=== PATIENT | female | born 1940 | race Caucasian/White ===

== ENCOUNTER 2020-01-12 14:08 | Emergency (ER) | payer OTHER ==
[~2020-01-12] VITALS: Ht 167.6 cm; Wt 90.7 kg
--- NOTE | ~2020-01-12 | EMS ---
[address] [address] EMS Patient Care Report Name: JULIET ADEN Room #: REG JENNIFER Tate#: [id number] Admission: 01/12/20 Attend Phys: Discharge: Date of : 42 Report #: [id number] THIS REPORT FOR: //name// Report Transmitted: 01/12/2020 16:40 EMS Care Summary [facility] MED-ACT Incident [id number] @ 01/12/2020 13:17 Incident Location [address] [place] [address] Patient JULIET ADEN Female, 79 Years 1940 Patient Address [id number] [place] [id number] Patient History Diabetes,Hypertension (HTN),Chronic Kidney Disease,Ventilator dependent, Chief Complaint " We found her on the ground in cardiac arrset." Disposition Transported No Lights/[place] Dispatch Reason Cardiac Arrest/ Transported To [facility] Narrative EMS made contact with female pt laying supine on the ground with a vent connected to her trach. S47 reported that they had arrived to find an alert stable pt laying supine on the ground in no apparent distress and tracking responders. Staff reported that the pt was found left lateral recumbent on the floor at the foot of her bed with her vent detached from her trach, seemingly in cardiac arrest. Staff reported that they did 5-6 " rounds of CPR and then the pt regained consciousness and they stopped. Staff reported that the pt was [address] [place] [address] EMS Patient Care Report Name: JULIET ADEN Room #: REG [place]#: [id number] Admission: 01/12/20 Attend Phys: Discharge: Date of : 42 Report #: [id number] 100% vent dependent and had been in the facility for a year. EMS advised that the pt appeared to be breathing on her own due to obvious unassisted chest rise, wave form capnography and acceptable SPO2. Facility reported that she was always on the vent so EMS asked if it was a demand vent and staff denied this. Staff reported that the pt had been unable to wean off the vent which was why she was at this facility. Staff reported that the t had been at this facility for a year and was mostly non weight bearing because of weakness Pt maintained her breathing well when not being ventilated by EMS and EMS found it difficult to ventilate the pt because she was breathing at a different rate than EMS was attempting to ventilate. Staff reported that " they" wanted the pt sent out for a head CT. M1141 and the pt's Physician arrived the same time and he began to ask situational questions about what had happened. The physician asked if the pt was stable, EMS advised the pt was, and then asked if the family had requested transport or if the pt was staying. Staff then reported that the family had not been contacted yet. EMS asked of the pt was to be transported to hospital or not. Staff then reported that the pt could go for a head CT and then come right back. EMS then placed the pt on a scoop stretcher then on the cot, then the scoop removed and the pt secured. When pt was being moved to the [facility] she tried to remove the BVM and had to be coached to not remove this. Pt was able to to answer question by shaking her head in a yes and no fashion. Pt reported chest pain from the chest compression and reported that she had full recollection of events. Pt reported that she could remember the entirety of the chest compressions but was too weak to stop the staff. Pt reported that she had fallen when she unhooked her vent to try and stand up but was too weak. Pt confirmed that she was infect breathing and was intermittently able to sustain her own breathing Pt denied hitting her head and reported that she more slid to the ground. Pt denied neck or back pain, SOA or extremity pain. Pt voiced no further complaints. Initial Vitals @13:53P: 96,R: 32,BP: 162/74,Pain: 6/10,EtCO2: 54,SpO2: 99, @13:35P: 85,R: 30,EtCO2: 50,SpO2: 100, @13:53P: 98,R: 31,EtCO2: 52,SpO2: 100, @14:04P: 85,R: 35,EtCO2: 54,SpO2: 93, @13:59P: 86,R: 40,BP: 186/76,EtCO2: 63,SpO2: 94, @13:54P: 96,R: 29,EtCO2: 59,SpO2: 96, @PTAP: 85,R: 30,BP: 217/79,GCS: 11,SpO2: 100,Revised Trauma: 10, Assessments @13:32MENTAL:Other,SKIN:HEENT:Neck/Airway: Other,Head/Face: No Abnormalities,LUNG SOUNDS:General: Other,ABDOMEN:General: Other,PELVIS//GI:Incontinence,EXTREMITIES:Left Arm: No Abnormalities,Right Arm: No Abnormalities,Left Leg: No Abnormalities,Right Leg: No Abnormalities,PULSE:NEURO:No Abnormalities, [facility] [address] [place] [address] EMS Patient Care Report Name: JULIET ADEN Room #: REG ER [place]#: [id number] Admission: 01/12/20 Attend Phys: Discharge: Date of : 42 Report #: [id number] Impression Other tracheostomy complication Procedures @PTAResponse: [email or web address] ECGResponse: [email or web address] CommentsResponse: Unchanged Timeline TRACK WATCHMAN,Response: WorseSucceeded, TRACK WATCHMAN,12-Lead ECG,Response: UnchangedSucceeded, TRACK WATCHMAN,General Comments,Response: Unchanged TRACK WATCHMAN,BP: 217/79 M,PULSE: 85,RR: 30 R,SPO2: 100 Ox,ETCO2: ,BG: ,PAIN: ,GCS: 11, 13:16,Call Received 13:16,Psap Call 13:17,Dispatched 13:17,En Route 13:25,On Scene 13:30,At Patient 13:35,BP: / M,PULSE: 85,RR: 30 R,SPO2: 100 Ox,ETCO2: 50 ,BG: ,PAIN: ,GCS: , 13:50,Depart Scene 13:53,BP: 162/74 M,PULSE: 96,RR: 32 R,SPO2: 99 Ox,ETCO2: 54 ,BG: ,PAIN: 6,GCS: , 13:53,BP: / M,PULSE: 98,RR: 31 R,SPO2: 100 Ox,ETCO2: 52 ,BG: ,PAIN: ,GCS: , 13:54,BP: / M,PULSE: 96,RR: 29 R,SPO2: 96 Ox,ETCO2: 59 ,BG: ,PAIN: ,GCS: , 13:59,BP: 186/76 M,PULSE: 86,RR: 40 R,SPO2: 94 Ox,ETCO2: 63 ,BG: ,PAIN: ,GCS: , 14:01,At Destination 14:04,BP: / M,PULSE: 85,RR: 35 R,SPO2: 93 Ox,ETCO2: 54 ,BG: ,PAIN: ,GCS: , 14:24,Call Closed Disclaimer v1.1 Copyright 2020 [employer] This EMS Care Summary contains data elements from the applicable legal record (which may be displayed differently). It is designed to provide pertinent information for the following purposes: continuity of care, clinical quality, and state data reporting. The complete legal record is available to ED staff and administrators of the receiving hospital in [employer]'s Patient Tracker. All data is provided "as is."
--- NOTE | ~2020-01-12 | EMS ---
[facility] [address] [place] [address] EMS Patient Care Report Name: JULIET ADEN Room #: DEP JENNIFER Tate#: [id number] Admission: 01/12/20 Attend Phys: Discharge: 01/12/20 Date of : 42 Report #: [id number] THIS REPORT FOR: //name// Report Transmitted: 01/16/2020 10:26 EMS Care Summary [facility] MED-ACT Incident [id number] @ 01/12/2020 13:17 Incident Location [address] [address] Patient JULIET ADEN Female, 79 Years 1940 Patient Address [address] [place] [address] Patient History Diabetes,Hypertension (HTN),Chronic Kidney Disease,Ventilator dependent, Chief Complaint " We found her on the ground in cardiac arrset." Disposition Transported No Lights/[place] Dispatch Reason Cardiac Arrest/ Transported To [facility] Narrative EMS made contact with female pt laying supine on the ground with a vent connected to her trach. S47 reported that they had arrived to find an alert stable pt laying supine on the ground in no apparent distress and tracking responders. Staff reported that the pt was found left lateral recumbent on the floor at the foot of her bed with her vent detached from her trach, seemingly in cardiac arrest. Staff reported that they did 5-6 " rounds of CPR and then the pt regained consciousness and they stopped. Staff reported that the pt was [facility] [address] [place] [address] EMS Patient Care Report Name: JULIET ADEN Room #: DEP [place]#: [id number] Admission: 01/12/20 Attend Phys: Discharge: 01/12/20 Date of : 42 Report #: [id number] 100% vent dependent and had been in the facility for a year. EMS advised that the pt appeared to be breathing on her own due to obvious unassisted chest rise, wave form capnography and acceptable SPO2. Facility reported that she was always on the vent so EMS asked if it was a demand vent and staff denied this. Staff reported that the pt had been unable to wean off the vent which was why she was at this facility. Staff reported that the t had been at this facility for a year and was mostly non weight bearing because of weakness Pt maintained her breathing well when not being ventilated by EMS and EMS found it difficult to ventilate the pt because she was breathing at a different rate than EMS was attempting to ventilate. Staff reported that " they" wanted the pt sent out for a head CT. M1141 and the pt's Physician arrived the same time and he began to ask situational questions about what had happened. The physician asked if the pt was stable, EMS advised the pt was, and then asked if the family had requested transport or if the pt was staying. Staff then reported that the family had not been contacted yet. EMS asked of the pt was to be transported to hospital or not. Staff then reported that the pt could go for a head CT and then come right back. EMS then placed the pt on a scoop stretcher then on the cot, then the scoop removed and the pt secured. [facility] she tried to remove the BVM and had to be coached to not remove this. Pt was able to to answer question by shaking her head in a yes and no fashion. Pt reported chest pain from the chest compression and reported that she had full recollection of events. Pt reported that she could remember the entirety of the chest compressions but was too weak to stop the staff. Pt reported that she had fallen when she unhooked her vent to try and stand up but was too weak. Pt confirmed that she was infect breathing and was intermittently able to sustain her own breathing Pt denied hitting her head and reported that she more slid to the ground. Pt denied neck or back pain, SOA or extremity pain. Pt voiced no further complaints. Initial Vitals @13:53P: 96,R: 32,BP: 162/74,Pain: 6/10,EtCO2: 54,SpO2: 99, @13:35P: 85,R: 30,EtCO2: 50,SpO2: 100, @13:53P: 98,R: 31,EtCO2: 52,SpO2: 100, @14:04P: 85,R: 35,EtCO2: 54,SpO2: 93, @13:59P: 86,R: 40,BP: 186/76,EtCO2: 63,SpO2: 94, @13:54P: 96,R: 29,EtCO2: 59,SpO2: 96, @PTAP: 85,R: 30,BP: 217/79,GCS: 11,SpO2: 100,Revised Trauma: 10, Assessments @13:32MENTAL:Other,SKIN:HEENT:Neck/Airway: Other,Head/Face: No Abnormalities,LUNG SOUNDS:General: Other,ABDOMEN:General: Other,PELVIS//GI:Incontinence,EXTREMITIES:Left Arm: No Abnormalities,Right Arm: No Abnormalities,Left Leg: No Abnormalities,Right Leg: No Abnormalities,PULSE:NEURO:No Abnormalities, [facility] [address] [place] [address] EMS Patient Care Report Name: JULIET ADEN Room #: [facility]#: [id number] Admission: 01/12/20 Attend Phys: Discharge: 01/12/20 Date of : 42 Report #: [id number] Impression Other tracheostomy complication Procedures @PTAResponse: [email or web address] ECGResponse: [email or web address] CommentsResponse: Unchanged Timeline OCEAN EXPORT ACCOUNT MANAGER,Response: WorseSucceeded, OCEAN EXPORT ACCOUNT MANAGER,12-Lead ECG,Response: UnchangedSucceeded, OCEAN EXPORT ACCOUNT MANAGER,General Comments,Response: Unchanged OCEAN EXPORT ACCOUNT MANAGER,BP: 217/79 M,PULSE: 85,RR: 30 R,SPO2: 100 Ox,ETCO2: ,BG: ,PAIN: ,GCS: 11, 13:16,Call Received 13:16,Psap Call 13:17,Dispatched 13:17,En Route 13:25,On Scene 13:30,At Patient 13:35,BP: / M,PULSE: 85,RR: 30 R,SPO2: 100 Ox,ETCO2: 50 ,BG: ,PAIN: ,GCS: , 13:50,Depart Scene 13:53,BP: 162/74 M,PULSE: 96,RR: 32 R,SPO2: 99 Ox,ETCO2: 54 ,BG: ,PAIN: 6,GCS: , 13:53,BP: / M,PULSE: 98,RR: 31 R,SPO2: 100 Ox,ETCO2: 52 ,BG: ,PAIN: ,GCS: , 13:54,BP: / M,PULSE: 96,RR: 29 R,SPO2: 96 Ox,ETCO2: 59 ,BG: ,PAIN: ,GCS: , 13:59,BP: 186/76 M,PULSE: 86,RR: 40 R,SPO2: 94 Ox,ETCO2: 63 ,BG: ,PAIN: ,GCS: , 14:01,At Destination 14:04,BP: / M,PULSE: 85,RR: 35 R,SPO2: 93 Ox,ETCO2: 54 ,BG: ,PAIN: ,GCS: , 14:24,Call Closed Disclaimer v1.1 Copyright 2020 [employer] This EMS Care Summary contains data elements from the applicable legal record (which may be displayed differently). It is designed to provide pertinent information for the following purposes: continuity of care, clinical quality, and state data reporting. The complete legal record is available to ED staff and administrators of the receiving hospital in [employer]'s Patient Tracker. All data is provided "as is."
[2020-01-12 14:29] LABS: MONOCYTES 6.7 % (1.0-8.0)
[2020-01-12 14:31] LABS: ABSOLUTE NEUTROPHILS 8.5 thou/uL (1.4-8.2); BASOPHILS 0.5 % (0.0-2.0); EOSINOPHILS 3.2 % (0.0-3.0); LYMPHOCYTES 20.2 % (24.0-44.0); MCH 22.9 pg (26.0-34.0); MCHC 30.7 g/dL (28.0-37.0); MCV 74.6 fL (80.0-100.0); PLATELET COUNT 303 thou/uL (150-400); POLYS 69.4 % (36.0-66.0); RBC 2.64 mil/uL (4.20-5.00); WBC 12.3 thou/uL (4.0-11.0)
[2020-01-12 14:37] LABS: HEMATOCRIT 19.7 % (37.0-47.0); HEMOGLOBIN 6.1 gm/dL (12.0-15.0)
[2020-01-12 14:51] LABS: BE(vivo) 6.5 mmol/L (-2 to +3); HCO3 32.1 mmol/L (22.0-26.0); PCO2 54.4 mmHg (35.0-45.0); PO2 119.3 mmHg (80.0-100.0); pH 7.389 (7.360-7.450); sO2 98.2 % (92.0-98.0)
[2020-01-12 15:05] LABS: ANION GAP 5 mmol/L (7-16); BUN 23 mg/dL (7-18); CALCIUM 8.9 mg/dL (8.5-10.1); CHLORIDE 98 mmol/L (98-107); CO2 33 mmol/L (21-32); CREATININE 1.1 mg/dL (0.6-1.0); GLUCOSE 182 mg/dL (74-106); POTASSIUM 4.7 mmol/L (3.5-5.1); SODIUM 136 mmol/L (136-145)
[2020-01-12 15:15] LABS: ALBUMIN 2.8 g/dL (3.4-5.0); DIRECT BILIRUBIN < 0.1 mg/dL (<0.1-0.2); SGOT 31 U/L (15-37); SGPT 23 U/L (30-65); TOTAL BILIRUBIN 0.3 mg/dL (0.2-1.0); TOTAL PROTEIN 7.5 g/dL (6.4-8.2); TROPONIN-I <0.06 ng/mL (<0.06)
[2020-01-12 19:35] VITALS: BP 165/82
--- NOTE | 2020-01-13 08:28 | EKG ---
[facility] [place] [address] [address] [place] [address] ELECTROCARDIOGRAM REPORT Name: JULIET ADEN Room #: [facility]#: [id number] Admission: 01/12/20 Attend Phys: Discharge: 01/12/20 Date of : 42 Report #: [id number] THIS REPORT FOR: cc: Sb Del Cid MD, Christopher B. MD Lundgren,Manjit Yao MD [facility] ~ THIS REPORT FOR: //name// [facility] ED Test Date: 2020-01-12 Test Time: 14:14:35 Pat Name: JULIET ADEN Department: Room: Gender: F Ultrasonic Cleaner: [facility] : 1940 Requested By: Richard Goodrich Order Number: [id number] MD: Manjit Wetzel Measurements Intervals Gilbert Rate: 76 P: 0 CT: 218 QRS: 127 QRSD: 113 T: 10 QT: 410 QTc: 462 Interpretive Statements Sinus rhythm Atrial premature complex Prolonged CT interval Left posterior fascicular block Low voltage, extremity leads Abnormal R-wave progression, late transition No previous ECG available for comparison Electronically Signed On 01-13-2020 8:28:29 CDT by Manjit Wetzel [email or web address] <ELECTRONICALLY SIGNED> By: Manjit Wetzel MD, [facility] 01/13/20 0828 1414 1414 Manjit Wetzel MD, [facility] /EPI
== END 2020-01-12 19:56 ==
LOC: ER 14:08
PROVIDERS: Emergency Medicine
DX: J98.9 Respiratory disorder, unspecified (principal); I46.8 Cardiac arrest due to other underlying condition; E11.9 Type 2 diabetes mellitus without complications; I48.91 Unspecified atrial fibrillation; Z86.73 Personal history of transient ischemic attack (TIA), and cerebral infarction without residual deficits; I50.9 Heart failure, unspecified; E66.9 Obesity, unspecified; Z88.6 Allergy status to analgesic agent; Z88.8 Allergy status to other drugs, medicaments and biological substances; Z68.32 Body mass index [BMI] 32.0-32.9, adult

== ENCOUNTER 2020-07-13 18:02 | Inpatient (IN) | payer OTHER, MEDICAID ==
[~2020-07-13] VITALS: Ht 165.1 cm; Wt 75.3 kg
[2020-07-13] VITALS (7 sets, daily range): BP systolic 105–163; BP diastolic 22–42
--- NOTE | ~2020-07-13 | HC ---
[facility] [place] [address] CONSULTATION Name: JULIET ADEN Room #: 247-P ADM IN M.R.#: [id number] Admission: 07/13/20 Attend Phys: Adam Hernandez MD Discharge: Date of : 42 Report #: [id number] THIS REPORT FOR: cc: Sb Del Cid MD, Christopher B. MD Nichols, Jon C. MD ~ DATE OF SERVICE: 07/14/2020 GASTROINTESTINAL CONSULTATION REASON FOR CONSULTATION: Severe anemia. BACKGROUND: The patient is a 80-year-old white female with multiple medical problems requiring chronic ventilatory support, transferred from [facility] facility with increased shortness of breath, elevated temperature up to 101.2 degrees, decreased tolerance of oral intake and decreased mentation. The patient's eyes are open and she is responsive to simple questions, but is unable to provide any detail of events. She has been progressively weaker over the past week with decreased oral intake with alteration in her normal mental status. History is also reviewed with her nurse in the ICU and there has not been report of any active GI bleeding, although she was found to have severe anemia on her admission. LABORATORY DATA: Initial laboratory studies on 07/13/2020 included white blood cell count 20.1; hemoglobin 4.2; MCV 70.9; platelet count 443,000. BNP on 07/13/2020 was markedly elevated at 3627. Procalcitonin 0.11, not elevated. Further iron studies on 07/14/2020 included serum iron 9, TIBC 170 with 5% iron saturation and ferritin 79. PAST MEDICAL HISTORY: Unable to be obtained from the patient, but she has history of acute hypoxic respiratory failure secondary to cardiac arrest, CVA, congestive heart failure, atrial fibrillation, diabetes. CURRENT MEDICATIONS: Losartan 25 mg per day, atorvastatin 10 mg at bedtime, vancomycin 1 gram q. 12 hours, Vimpat 200 mg p.o. b.i.d., diltiazem 30 mg q. 6 hours, famotidine 20 mg IV each day, aspirin 81 mg per day, furosemide 40 mg IV b.i.d., nystatin topical, Levaquin 750 mg every 48 hours, Humalog insulin scale, Zosyn 3.375 grams IV q. 8 hours, methylprednisolone 40 mg IV q. 8 hours, albuterol inhaler every 4 hours, norepinephrine titration. ALLERGIES: ACETAMINOPHEN, PROPOXYPHENE. SOCIAL HISTORY, FAMILY HISTORY, REVIEW OF SYSTEM: Unable to be obtained from the patient. [address] [address] CONSULTATION Name: JULIET ADEN Room #: [address] [place] [address] [place] [facility].#: [id number] Admission: 07/13/20 Attend Phys: Adam Hernandez MD Discharge: Date of : 42 Report #: [id number] PHYSICAL EXAMINATION: GENERAL: She appears awake and in no acute distress at rest, but elderly and mildly tremulous. VITAL SIGNS: O2 saturation 100% on ventilator. Blood pressure 168/57, pulse 80. HEENT: No obvious scleral icterus. HEART: Rate and rhythm regular at this time. LUNGS: Auscultation of anterior lung cuba reveals occasional rhonchi, but good air movement. ABDOMEN: Soft, nondistended, with active bowel sounds. PEG tube is in place with no obvious blood within the tube. EXTREMITIES: She does not have any significant peripheral edema. RADIOLOGICAL STUDIES: Chest x-ray revealed placement of right subclavian, stable bilateral pulmonary opacities, right greater than left, most consistent with pneumonia. A CT head revealed no acute intracranial process. IMPRESSION: 1. Severe anemia with decrease in hemoglobin to 4.3. Note that hemoglobin was 6.1 in 12/2019. She has not had any overt evidence of gastrointestinal bleeding reported. 2. Acute/chronic respiratory failure with maintenance on the ventilator per tracheostomy. 3. Congestive heart failure. 4. Status post tracheostomy and PEG tube placement following cardiac arrest. 5. Diabetes mellitus. 6. History of atrial fibrillation. RECOMMENDATIONS: 1. Monitor H and H, following transfusion of 2 units of packed red blood cells. 2. IV pantoprazole 40 mg each day. 3. Check stool for occult blood. 4. Monitor clinical condition following treatment for congestive heart failure and pneumonia. By: [id number] Alfonso Luna MD /nt
[2020-07-13 18:24] LABS: BE(vivo) 5.8 mmol/L (-2 to +3); HCO3 30.6 mmol/L (22.0-26.0); PCO2 47.5 mmHg (35.0-45.0); pH 7.427 (7.360-7.450); sO2 92.4 % (92.0-98.0)
[2020-07-13 18:47] LABS: MCHC 29.6 g/dL (28.0-37.0); MCV 70.9 fL (80.0-100.0); PLATELET COUNT 443 thou/uL (150-400); RDW 22.8 % (10.5-14.5); WBC 20.1 thou/uL (4.0-11.0)
[2020-07-13 18:52] LABS: HEMATOCRIT 14.2 % (37.0-47.0); HEMOGLOBIN 4.2 gm/dL (12.0-15.0)
--- NOTE | 2020-07-13 19:04 | NUR ---
PROVIDER DISCUSSED RESULTS OF LABS WITH THIS NURSE V/O TO DECREASE FLUIDS FROM 1000ML HOUR TO 80/HR, ORDER COMPLETED.
[2020-07-13 19:06] LABS: ABSOLUTE NEUTROPHILS 18.7 thou/uL (1.4-8.2); ANISOCYTOSIS 1+
[2020-07-13 19:07] LABS: HYPOCHROMASIA 1+; MICROCYTES 1+
[2020-07-13 19:08] LABS: ANION GAP 0 mmol/L (7-16); BUN 65 mg/dL (7-18); CALCIUM 8.5 mg/dL (8.5-10.1); CHLORIDE 99 mmol/L (98-107); CO2 34 mmol/L (21-32); CREATININE 1.2 mg/dL (0.6-1.0); GLUCOSE 181 mg/dL (74-106); SODIUM 133 mmol/L (136-145)
[2020-07-13 19:19] LABS: ALBUMIN 1.8 g/dL (3.4-5.0); AMYLASE 28 U/L (25-115); DIRECT BILIRUBIN 0.1 mg/dL (<0.1-0.2); LIPASE 47 U/L (73-393); MAGNESIUM 2.4 mg/dL (1.8-2.4); SGOT 38 U/L (15-37); SGPT 39 U/L (30-65); TOTAL BILIRUBIN 0.2 mg/dL (0.2-1.0); TOTAL PROTEIN 7.6 g/dL (6.4-8.2); TROPONIN-I <0.06 ng/mL (<0.06)
[2020-07-13 19:43] LABS: MCH 21.1 pg (26.0-34.0); MCHC 29.5 g/dL (28.0-37.0); MCV 71.3 fL (80.0-100.0); PLATELET COUNT 420 thou/uL (150-400); RBC 2.03 mil/uL (4.20-5.00); WBC 21.8 thou/uL (4.0-11.0)
[2020-07-13 19:45] LABS: HEMOGLOBIN 4.3 gm/dL (12.0-15.0)
[2020-07-13 19:46] LABS: HEMATOCRIT 14.5 % (37.0-47.0); URINE BILIRUBIN NEGATIVE (Negative); URINE BLOOD NEGATIVE (Negative); URINE CLARITY SL CLOUDY; URINE COLOR YELLOW; URINE GLUCOSE-RANDOM* NEGATIVE (Negative); URINE KETONES NEGATIVE (Negative); URINE LEUKOCYTES-REFLEX NEGATIVE (Negative); URINE NITRITE-REFLEX NEGATIVE (Negative); URINE PROTEIN (DIPSTICK) TRACE (Negative)
--- NOTE | 2020-07-13 20:00 | NUR ---
IV team is here at bedside to put in CL or PICC
[2020-07-13 20:27] LABS: ANISOCYTOSIS 1+; MICROCYTES 1+
[2020-07-13 20:28] LABS: ABSOLUTE NEUTROPHILS 19.8 thou/uL (1.4-8.2); HYPOCHROMASIA 2+
--- NOTE | 2020-07-13 21:02 | NUR ---
VAT CONSULTED FOR PICC LINE PLACEMENT. RIGHT UPPER CEPHALIC TL PICC PLACED, PER POLICY. TIP LOCATION VERIFIED WITH 3CG, BUT UNABLE TO PRINT, SO WILL HAVE CXR FOR RECORD.
--- NOTE | 2020-07-13 21:35 | NUR ---
pt back from CT
[2020-07-13] MEDS ORDERED: HUMALOG100 UNIT/1 SUBQ (23:41)
[2020-07-13] MEDS ORDERED: LANTUS SUBQ (23:42)
[2020-07-13] MEDS ORDERED: FLORANEX TABLE1 EACH PER TUBE (23:43)
[2020-07-13] MEDS ORDERED: CYMBALTA60 MG PER TUBE (23:44)
[2020-07-13] MEDS ORDERED: FUROSEMIDE 40 M40 MG PER TUBE (23:44)
[2020-07-13] MEDS ORDERED: COZAAR 25 MG TA25 M2 PER TUBE (23:45)
[2020-07-13] MEDS ORDERED: ALPHAGAN P5 ML OPHTHALMIC (23:49)
[2020-07-13] MEDS ORDERED: DORZOLAMIDE 2%10 ML OPHTHALMIC (23:50)
[2020-07-13] MEDS ORDERED: HYTRIN 2MG CAPSU2 M1 PER TUBE (23:51)
[2020-07-13] MEDS ORDERED: BUSPIRONE HCL5 MG PER TUBE (23:52)
[2020-07-13] MEDS ORDERED: VIMPAT200 MG PERIART (23:52)
[2020-07-13] MEDS ORDERED: FEROSUL325 M1 PER TUBE (23:53)
[2020-07-13] MEDS ORDERED: DILTIAZEM ER60 M1 PER TUBE (23:54)
[2020-07-13] MEDS ORDERED: HYDRALAZINE 5050 MG PER TUBE (23:55)
[2020-07-13] MEDS ORDERED: LIPITOR10 MG PO (23:56)
[2020-07-13] MEDS ORDERED: LUMIGAN2.5 M1 OPHTHALMIC (23:57)
[2020-07-13] MEDS ORDERED: ACETAMINOP650 MG/201 PER TUBE (23:58)
[2020-07-14] VITALS (32 sets, daily range): BP systolic 94–178; BP diastolic 22–69
[2020-07-14] MEDS ORDERED: FLONASE 0.05%50 MCG NASAL
[2020-07-14] MEDS ORDERED: ONDANSETRON HCL4 M2 PO (00:05)
[2020-07-14] MEDS ORDERED: MIRALAX119 GM PO (00:06)
[2020-07-14] MEDS ORDERED: TRAMADOL 50 MG50 MG PO (00:07)
[2020-07-14 05:10] LABS: MCV 75.5 fL (80.0-100.0)
[2020-07-14 05:11] LABS: MCH 23.7 pg (26.0-34.0); MCHC 31.5 g/dL (28.0-37.0); RBC 2.64 mil/uL (4.20-5.00); RDW 21.6 % (10.5-14.5)
[2020-07-14 05:18] LABS: HEMATOCRIT 19.9 % (37.0-47.0); HEMOGLOBIN 6.3 gm/dL (12.0-15.0)
[2020-07-14 05:19] LABS: OBSERVED RETIC COUNT 2.91 % (0.6-2.6)
[2020-07-14 05:51] LABS: % SATURATION 5 % (20-39); IRON 9 ug/dL (50-170); TIBC 170 ug/dL (250-450)
[2020-07-14 05:52] LABS: ALBUMIN 1.8 g/dL (3.4-5.0); CALCIUM 8.4 mg/dL (8.5-10.1); CREATININE 1.1 mg/dL (0.6-1.0); POTASSIUM 4.4 mmol/L (3.5-5.1); TOTAL BILIRUBIN 0.4 mg/dL (0.2-1.0); TOTAL PROTEIN 7.5 g/dL (6.4-8.2)
[2020-07-14 06:58] LABS: FOLIC ACID 32.6 ng/mL (8.6-58.9)
--- NOTE | 2020-07-14 07:58 | NUR ---
2300- Patient here from ER. Transferred to ICU bed and full monitoring. Full bath given upon admission. Wound pictures done. HR and rhythm stable. Oxygenation stable. 0630- Patient HR and rhythm remains stable. SBP lightly elevated. Lasix given per order. Afebrile. Tolerating vent settings, no distsress noted. Adequate u/o for this shift. Dr. Winkler here to see patient. Spoke with granddaughter over the phone this am. Let her know that the covid test has not come back yet and so she cannot visit. She said she would call back in a couplc of hours. See documentation on interventions for assessment details. Patient is progressing towards goals.
--- NOTE | 2020-07-14 09:57 | HC ---
[facility] [place] [address] CONSULTATION Name: JULIET ADEN Room #: 247-P ADM IN M.R.#: [id number] Admission: 07/13/20 Attend Phys: Adam Hernandez MD Discharge: Date of : 42 Report #: [id number] THIS REPORT FOR: cc: Sb Del Cid MD, Christopher B. MD Barry,Saurabh Nieves MD ~ DATE OF SERVICE: 07/14/2020 INFECTIOUS DISEASE CONSULTATION ATTENDING PHYSICIAN: Dr. Hernandez. REASON FOR EVALUATION: Febrile illness with worsening chronic respiratory failure, underlying requirement of chronic ventilatory support. HISTORY OF SUBJECTIVE: Chart reviewed, patient examined. This is a 80-year-old woman who has chronic respiratory failure requiring vent dependence, currently reside in a facility. She noted over the course of the last week, her mentation has worsened, she became less responsive, had poor oral intake, was found to be febrile and transferred to the Emergency Room where she was confirmed to have all those things, worsening hypoxemia on 100%, pO2 was 63. Chest x-ray did show diffuse widespread alveolar opacities with cardiomegaly, suspected pulmonary edema versus multifocal pneumonia, was found to have hemoglobin of 4.2 as well. She was transfused 2 units of packed red cells, although clinically urine looked dark. Urinalysis was otherwise unremarkable. It is notable she had coronavirus infection in 03/2020. Repeat antigen was negative. She was empirically started on broad-spectrum therapy with vancomycin, Zosyn and Levaquin. She is afebrile at this point, she is nonresponsive. ALLERGIES: PROPOXYPHENE, ACETAMINOPHEN. CURRENT MEDICATIONS: Include vancomycin, aspirin, famotidine, furosemide, insulin lispro sliding scale, levofloxacin, Zosyn, methylprednisolone 40 IV q. 8 hours, ipratropium and albuterol inhaler, p.r.n. ondansetron. She has not required pressor support thus far. PAST MEDICAL HISTORY: History of diabetes mellitus, cardiomyopathy, history of congestive heart failure, atrial fibrillation, previous cardiac arrest, previous stroke, chronic vent dependence, history of urinary tract infections, COVID-19 infection in 03/2020, history of depression. SOCIAL HISTORY: Not known. FAMILY HISTORY: Noncontributory. [facility] [address] [place] [address] CONSULTATION Name: JULIET ADEN Room #: [address] [place] [address] [place] M.R.#: [id number] Admission: 07/13/20 Attend Phys: Adam Hernandez MD Discharge: Date of : 42 Report #: [id number] REVIEW OF SYSTEMS: Not obtainable. PHYSICAL EXAMINATION: GENERAL: She appears chronically ill and undernourished. She is nonresponsive, maintained on ventilatory support via tracheostomy. VITAL SIGNS: Temperature 97.7, pulse 76, respirations 18, blood pressure 159/54. SKIN: Warm, dry. She is pale. HEENT: Normocephalic. Tracheostomy in place. LUNGS: Few scattered coarse breath sounds. HEART: Distant, regular. I do not appreciate a murmur. ABDOMEN: Mildly distended. There are no peritoneal signs. GENITOURINARY AND RECTAL: Deferred. LABORATORY DATA: Electrolytes: Sodium 138, potassium 4.4, chloride 103, bicarbonate is 30, anion gap of 5, BUN and creatinine 63 and 1.1, glucose 124. LFTs unremarkable. Albumin 1.8, total protein 7.5. Estimated GFR 48. CBC post-transfusion; white count of 22, H and H 6.3 and 19.9, platelets of 358. Procalcitonin 0.11. ProBNP of 3627. Lactic acid 0.5. ASSESSMENT: Acute on chronic respiratory failure, pneumonitis, perhaps multiple factors involved given the fevers, certainly cannot exclude bacterial pneumonitis likely on the basis of aspiration. Certainly given her history and the fact she is in facility would expect perhaps more resistant organism. We will continue current therapy. It is notable that she became normothermic. Continue to require oxygen support, wean down this as possible, it is not clear as to her baseline settings in the event of difficulty clearing secretions. May consider a therapeutic bronchoscopy as well. She remains critically ill. Continue to monitor expectantly. <ELECTRONICALLY SIGNED> By: Saurabh Winkler MD 07/14/20 0957 0619 0703 Saurabh Winkler MD /nt
--- NOTE | 2020-07-14 11:23 | 2DMMODE ---
[facility] [place] [address] 2 D/M-MODE ECHOCARDIOGRAM Name: JULIET ADEN Room #: 247-P ADM IN M.R.#: [id number] Admission: 07/13/20 Attend Phys: Adam Hernandez MD Discharge: Date of : 42 Report #: [id number] THIS REPORT FOR: cc: Sb Del Cid MD, Christopher B. MD Mancuso, Gerald M. MD [facility] ~ APPROVED REPORT Study performed: 07/14/2020 09:38:41 EXAM: Comprehensive 2D, Doppler, and color-flow Echocardiogram Patient Location: Bedside Room #: 247 Status: on-call BSA: 1.86 HR: 79 bpm BP: 172/57 mmHg Rhythm: NSR Other Information Study Quality: Adequate Technically limited study due to pt. on a ventilator. Risk Factors: Cardiac Risk Factors: DM Indications Congestive Heart Failure Atrial Fibrillation Atrial Flutter 2D Dimensions IVSd: 9.63 (7-11mm) LVOT Diam: 20.00 (18-24mm) LVDd: 41.36 mm PWd: 11.45 (7-11mm) Ascending Ao: 26.49 (22-36mm) LVDs: 25.98 (25-40mm) Aortic Root: 25.11 mm LV Single Plane 4CH: 60.04 % LV Single Plane 2CH: 57.43 % Biplane EF: 59.9 % Volumes Left Atrial Volume (Systole) Single Plane 4CH: 64.53 mL Single Plane 2CH: 55.88 mL [facility] [address] [place] [address] 2 D/M-MODE ECHOCARDIOGRAM Name: JULIET ADEN Room #: 247-P [facility] IN .R.#: [id number] Admission: 07/13/20 Attend Phys: Adam Hernandez MD Discharge: Date of : 42 Report #: [id number] ESV Index: 40.00 mL/m2 Aortic Valve AoV Peak David.: 1.79 m/s AO Peak Gr.: 12.88 mmHg LVOT Max P.16 mmHg LVOT Max V: 1.14 m/s BEENA Vmax: 2.06 cm2 Mitral Valve MV Peak Gr.: 14.76 mmHg MV Mean Gr.: 7.15 mmHg MV Max David.: 1.92 m/s MV Mean David.: 1.27 m/s MV VTI: 433.13 mm TDI Medial E' David.: 0.10 m/s Lateral E' David.: 0.08 m/s Pulmonary Valve PV Peak David.: 1.36 m/s PV Peak Gr.: 7.38 mmHg Tricuspid Valve TR Peak David.: 3.74 m/s TR Peak Gr.: 55.99 mmHg Left Ventricle The left ventricle is normal size. There is normal LV segmental wall motion. There is normal left ventricular wall thickness. Left ventricular systolic function is normal. The left ventricular ejection fraction is within the normal range. LVEF is 60-65%. This study is not technically sufficient to allow evaluation of the LV diastolic function. Right Ventricle The right ventricle is normal size. The right ventricular systolic function is normal. Atria Left atrium is mildly dilated. The right atrium size is normal. Aortic Valve The aortic valve is normal in structure. No aortic regurgitation is present. There is no aortic valvular stenosis. [facility] [address] [place] [address] 2 D/M-MODE ECHOCARDIOGRAM Name: JULIET ADEN Room #: 247-P [facility] IN .R.#: [id number] Admission: 07/13/20 Attend Phys: Adam Hernandez MD Discharge: Date of : 42 Report #: [id number] Mitral Valve Moderate mitral annular calcification with calcified posterior leaflet. Mild mitral regurgitation. Peak mitral valve pressure gradient is 15 mmHg and mean gradient is 7 mmHg. Moderate mitral stenosis. Tricuspid Valve The tricuspid valve is normal in structure. Mild to moderate tricuspid regurgitation. Tricuspid regurgitant jet is 56 mmHg. Unable to assess PA pressure. Pulmonic Valve The pulmonary valve is normal in structure. There is no pulmonic valvular regurgitation. Great Vessels The aortic root is normal in size. The ascending aorta is normal in size. Pt. is on a ventilator. Pericardium There is no pericardial effusion. <Conclusion> The left ventricle is normal size. LVEF is 60-65%. This study is not technically sufficient to allow evaluation of the LV diastolic function. The right ventricle is normal size. Left atrium is mildly dilated. The aortic valve is normal in structure. Moderate mitral annular calcification with calcified posterior leaflet. Mild mitral regurgitation. Mild to moderate tricuspid regurgitation. Tricuspid regurgitant jet is 56 mmHg. Unable to assess PA pressure. The aortic root is normal in size. Pt. is on a ventilator. There is no pericardial effusion. <ELECTRONICALLY SIGNED> By: Nacho Perry MD, FACC 07/14/20 1123 1123 1123 Nacho Perry MD, FACC /INF
[2020-07-14 18:39] LABS: HEMATOCRIT 23.8 % (37.0-47.0); HEMOGLOBIN 7.7 gm/dL (12.0-15.0)
[2020-07-15] VITALS (24 sets, daily range): BP systolic 140–185; BP diastolic 41–57
[2020-07-15 04:41] LABS: CALCIUM 8.3 mg/dL (8.5-10.1); CREATININE 1.2 mg/dL (0.6-1.0); POTASSIUM 3.9 mmol/L (3.5-5.1)
[2020-07-15 04:52] LABS: HEMATOCRIT 22.8 % (37.0-47.0); HEMOGLOBIN 7.3 gm/dL (12.0-15.0); MCH 24.8 pg (26.0-34.0); MCHC 32.1 g/dL (28.0-37.0); MCV 77.1 fL (80.0-100.0); RBC 2.96 mil/uL (4.20-5.00); RDW 20.7 % (10.5-14.5); WBC 8.7 thou/uL (4.0-11.0)
--- NOTE | 2020-07-15 05:57 | NUR ---
Patient sleeping on/off. Wakes easily and is alert with eyes wide open. Making eye contact, nods yes/no to simple questions. Mouths words. PRN morphine for pain. Heart rate and rhythm stable. SBP 150-160's. Afebrile. Tolerating vent settings with adequate oxygenation. No BM this shift. Adequate U/O. Am labs noted. No family called this shift. See documentation on interventions for assessment details. Patient is progressing towards goals.
--- NOTE | 2020-07-15 13:41 | EKG ---
[place] [address] [facility] [place] [address] ELECTROCARDIOGRAM REPORT Name: JULIET ADEN Room #: [facility]- ADM IN M.R.#: [id number] Admission: 07/13/20 Attend Phys: Adam Hernandez MD Discharge: Date of : 42 Report #: [id number] [facility] ED Test Date: 2020-07-13 Test Time: 18:48:52 Pat Name: JULIET ADEN Department: Room: [facility] Gender: F Showroom Manager: pooja : 1940 Requested By: Geoffrey Carpenter Order Number: [id number] MD: Manjit Wetzel Measurements Intervals [place] Rate: 97 P: MT: QRS: 172 QRSD: 129 T: 8 QT: 343 QTc: 436 Interpretive Statements Baseline artifact limits rhythm interpretation. 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
[2020-07-16] VITALS (27 sets, daily range): BP systolic 146–181; BP diastolic 41–59
[2020-07-16 06:42] LABS: HEMATOCRIT 24.9 % (37.0-47.0); HEMOGLOBIN 7.7 gm/dL (12.0-15.0); MCH 23.9 pg (26.0-34.0); MCHC 30.9 g/dL (28.0-37.0); MCV 77.3 fL (80.0-100.0); RBC 3.22 mil/uL (4.20-5.00); RDW 21.5 % (10.5-14.5); WBC 13.4 thou/uL (4.0-11.0)
[2020-07-16 06:50] LABS: CALCIUM 8.3 mg/dL (8.5-10.1); CREATININE 1.1 mg/dL (0.6-1.0); POTASSIUM 3.5 mmol/L (3.5-5.1)
--- NOTE | 2020-07-16 06:51 | NUR ---
ASSUMED PT CARE AT 1900. PT ALERT, MOUTHS WORDS AND NODS APPROPRIATELY. 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 PT STABILIZING. BATH THIS AM, CHRISSY AREA, PANNUS AND BUTTOCKS ESCORIATED. WOUND CARE ON COCCYX THIS AM. PT IS STABLE, U/O 925 OVER NOC. WILL CONTINUE TO MONITOR
--- NOTE | 2020-07-16 10:55 | NUR ---
chart review. she from [facility] skilled. chronic trach. cm tried to speak with her grand daughter damien, no answer. left message requesting call back. updates to be sent to [facility]. jorge requiring vent support, nutritional support. has assistance with all adl's at [facility]. will cont following as needed for dc needs.
--- NOTE | 2020-07-16 11:06 | NUR ---
Patients Granddaughter, Brianne, is here in room with patient. She expressed she will be here until 1130 today, then come tomorrow from 130pm to 430pm. She is very eager to answer questions. Nurse updated her on patient status.
--- NOTE | 2020-07-16 13:31 | NUR ---
WOUND CONSULT; UPON ASSESSMENT AN UNSTAGEABLE PRESSURE WOUND WAS IDENTIFIED. THERE IS AN AREA IN THE CENTER SUGESTIVE OF NECROSIS. THERE IS NO S/S OF INFECTION. NO WOUND ODOR. THE WOUND MEASURES 6 X 6 X 0.4. RECOMMENDATIONS; -PRAFO BOOTS -TURN Q2H -CONSULT DR DOBSON. -APPLY ZGUARD,COVER WITH A SACRAL FOAM, DAILY/PRN RN PRESENT.
--- NOTE | 2020-07-16 14:00 | NUR ---
Per Dr. Parnell, when tube feeding at full capacity, discontinue IV fluids.
--- NOTE | 2020-07-16 14:10 | NUR ---
Recommend vital AF 1.2 at goal 65ml/hr. When tube feed reaches goal, dc ivf and start water flushes of 150ml every 6hr.
--- NOTE | 2020-07-16 14:12 | NUR ---
Report given to oncoming nurse for continuation of care.
--- NOTE | 2020-07-16 17:22 | NUR ---
FAXED CLINICAL UPDATES, THERAPY NOTES, NEG COVID RESULTS TO [facility]. [facility] P [phone]; FAX [phone]
[2020-07-17] VITALS (25 sets, daily range): BP systolic 134–181; BP diastolic 39–81
[2020-07-17 04:33] LABS: HEMATOCRIT 26.4 % (37.0-47.0); HEMOGLOBIN 8.4 gm/dL (12.0-15.0); MCH 24.6 pg (26.0-34.0); MCHC 31.9 g/dL (28.0-37.0); MCV 77.1 fL (80.0-100.0); RBC 3.42 mil/uL (4.20-5.00); WBC 12.5 thou/uL (4.0-11.0)
[2020-07-17 05:24] LABS: CALCIUM 8.5 mg/dL (8.5-10.1); POTASSIUM 3.4 mmol/L (3.5-5.1)
--- NOTE | 2020-07-17 10:50 | NUR ---
during icu rounds, per pulmonary MD ok if she dc back to [facility] if hospitalist agree. updates to be sent to [facility]. cm passed on information to hospitalist and needing grand daughter to be updated. dcp [facility].
--- NOTE | 2020-07-17 11:09 | NUR ---
Per Dr Parnell, change to a bolus schedule tube feed. Need to change tube feed formula to TwoCal HN, 1 can every 6hr and increase water flush to 200ml every 4hr. DC IVF.
--- NOTE | 2020-07-17 15:10 | NUR ---
PT'S GRANDDAUGHTER, STEPHANIE, AT BEDSIDE FOR VISIT. STEPHANIE VERBALIZED CONCERNS REGARDING GOING BACK TO THE NH. SHE REALLY DESIRES TO TAKE MRS. ADEN HOME AND HAVE HOME HEALTH TO MANAGE PT CARE IF IT'S POSSIBLE. CASE MANAGEMENT DEPT. CALLED AND LEFT MESSAGE TO CALL BACK WITH INFORMATION. UPDATE GIVEN TO STEPHANIE, WHO VERBALIZED UNDERSTANDING.
--- NOTE | 2020-07-17 15:51 | HC ---
[facility] [place] [address] CONSULTATION Name: JULIET ADEN Room #: [facility] IN .R.#: [id number] Admission: 07/13/20 Attend Phys: Adam Hernandez MD Discharge: Date of : 42 Report #: [id number] THIS REPORT FOR: cc: Sb Del Cid MD,Nic Castellanos MD, MD ~ DATE OF SERVICE: 07/17/2020 WOUND CARE CONSULTATION PERSONAL PHYSICIAN: Dani Del Cid MD CHIEF COMPLAINT: Decubitus ulcer, sacral region and fungal rash. 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 The patient was admitted recently for uyqgy-mu-etzyzuq respiratory failure secondary to her pneumonia as well as found to have chronic blood loss anemia with a hemoglobin of 4.3. Upon admission, the patient was noted to have sacrococcygeal decubitus ulcer as well as a fungal rash in her pannus. We have been asked to follow the patient for these. 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 DRUG ALLERGIES: TYLENOL AND PROPOXYPHENE. SOCIAL HISTORY: The patient resides in a long-term care facility, is ventilator dependent. Does not smoke. FAMILY HISTORY: Not pertinent to current medical condition. FAMILY HISTORY AND REVIEW OF SYSTEMS: Unobtainable because the patient is currently on the ventilator and is sedated. PHYSICAL EXAMINATION: VITAL SIGNS: The patient is afebrile, pulse is 80, BP 158/48. GENERAL: This is an intubated and sedated white female who is in no acute distress. HEENT: Normocephalic, atraumatic. Mucous membranes are dry. NECK: Without JVD. Tracheostomy is in place and functioning. LUNGS: Slight diminished breath sounds heard throughout. HEART: Regular. ABDOMEN: Obese, soft, nontender. Underneath the abdominal pannus is a [facility] [address] [place] [address] CONSULTATION Name: JULIET ADEN Room #: [facility] IN [facility].#: [id number] Admission: 07/13/20 Attend Phys: Adam Hernandez MD Discharge: Date of : 42 Report #: [id number] significant fungal rash with excoriation. Evaluation of the sacrococcygeal region reveals a stage 3 decubitus ulcer with a mix of granulation and slough. Periwound is intact. There is no significant tunneling or undermining. Moderate amount of serosanguineous drainage noted without significant odor. EXTREMITIES: The patient moves all extremities without difficulty. Bilateral heels are intact. NEUROLOGIC: The patient once again is intubated and sedated. LABORATORY DATA: White count 12.5, hemoglobin 8.4. BUN 41, creatinine 1.0, albumin 1.8. IMPRESSION: 1. Stage 3 sacrococcygeal decubitus ulcer present on admission. 2. Fungal rash underneath the abdominal pannus. 3. Acute on chronic respiratory failure, ventilator dependent. 4. Anemia. 5. Sepsis secondary to pneumonia. 6. Hypertension. PLAN: At this time, we will start with barrier cream to the coccygeal ulcer b.i.d. and p.r.n. We will have her on a low air loss surface, having turned every 2 hours. We will continue with heel protection at all times for prevention. We will start InterDry Ag underneath the pannus without any nystatin powder, which had previously been used. We make sure we maximize the patient's protein supplementation for healing. Pulmonary is managing the patient's ventilator status. We will continue all other current medications. <ELECTRONICALLY SIGNED> By: Nic Santos MD 07/17/20 1551 [id number] 1350 Nic Santos MD /nt
--- NOTE | 2020-07-17 16:43 | NUR ---
PT MORE AWAKE, ALERT AND RESPONSIVE TODAY. PROBABLY GOING BACK TO [facility] TOMORROW. PT WILL NEED TO KEEP THE PICC LINE IN FOR LONG-TERM ANTIBIOTIC THERAPY. TUBE FEEDINGS CHANGED TO BOLUS WHICH PT IS TOLERATING WELL. PT PROGRESSING TOWARD GOALS.
--- NOTE | 2020-07-17 17:46 | NUR ---
FAXED CLINICAL UPDATE TO [facility] SPOKE WITH JAZZY IN ADM SHE RECEIVED UPFATE.
[2020-07-18] VITALS (26 sets, daily range): BP systolic 148–178; BP diastolic 37–58
[2020-07-18 05:00] LABS: HEMATOCRIT 24.3 % (37.0-47.0); HEMOGLOBIN 7.6 gm/dL (12.0-15.0); MCH 24.2 pg (26.0-34.0); MCHC 31.3 g/dL (28.0-37.0); MCV 77.4 fL (80.0-100.0); RBC 3.13 mil/uL (4.20-5.00); RDW 22.4 % (10.5-14.5); WBC 9.5 thou/uL (4.0-11.0)
[2020-07-18 05:18] LABS: CALCIUM 8.3 mg/dL (8.5-10.1); CREATININE 1.1 mg/dL (0.6-1.0); POTASSIUM 3.6 mmol/L (3.5-5.1)
--- NOTE | 2020-07-18 14:34 | NUR ---
cm checked with hospitalist, not going to be able to dc back to [facility] today, rt to make sure hgb is stable. cm provide update to [facility] and bedside nurse. will cont following as needed for dc needs.
--- NOTE | 2020-07-18 16:34 | NUR ---
FAXED CLINICAL UPDATE TO [facility] SPOKE WITH JAZZY IN ADM SHE RECEIVED UPDATE.
--- NOTE | 2020-07-18 19:03 | NUR ---
ASSUMED CARE 0700. PT FOLLOWING COMMANDS ANSWERING QUESTIONS THIS AM. AFEBRILE. BM TODAY. NO APPARENT SIGNS OF BLEEDING. AWAITING TO RETURN TO [facility]. PROGRESSING IN PLAN OF CARE.
[2020-07-19] VITALS (22 sets, daily range): BP systolic 125–163; BP diastolic 31–48
[2020-07-19 05:16] LABS: HEMATOCRIT 26.2 % (37.0-47.0); MCH 23.9 pg (26.0-34.0); MCHC 30.6 g/dL (28.0-37.0); RBC 3.36 mil/uL (4.20-5.00); RDW 21.8 % (10.5-14.5); WBC 11.5 thou/uL (4.0-11.0)
[2020-07-19 05:40] LABS: CALCIUM 8.8 mg/dL (8.5-10.1); CREATININE 1.1 mg/dL (0.6-1.0); MAGNESIUM 1.9 mg/dL (1.8-2.4); POTASSIUM 3.7 mmol/L (3.5-5.1)
--- NOTE | 2020-07-19 12:51 | NUR ---
pt grand daughter damien watters called asked again about going home from here, cm re education that time allowed to get everything ready for home, she would not still be here at hospital and [facility] will be able to assist with getting her equip in home and she will need training to manage trach, resp needs at home.
[2020-07-19 13:19] LABS: BE(vivo) 9.4 mmol/L (-2 to +3); HCO3 34.4 mmol/L (22.0-26.0); PCO2 50.2 mmHg (35.0-45.0); PO2 107.7 mmHg (80.0-100.0); pH 7.454 (7.360-7.450); sO2 98.1 % (92.0-98.0)
--- NOTE | 2020-07-19 16:17 | NUR ---
FAXED CLINICAL UPDATE TO [facility] SPOKE WITH CHRISTINE MARTINI HE RECEIVED UPDATE.
--- NOTE | 2020-07-19 17:11 | NUR ---
PERFORMED CPAP TRIAL WELL TODAY. AWAKE AND ALERT MOST OF THE DAY, RESPONSIVE AND FOLLOWS SIMPLE COMMANDS. TOLERATING BOLUS FEEDINGS. NEEDS TO HAVE BM WITH GUAIC COLLECTION. OVERALL, PT PROGRESSING TOWARD GOALS.
[2020-07-20] VITALS (14 sets, daily range): BP systolic 146–179; BP diastolic 38–53
--- NOTE | 2020-07-20 03:17 | NUR ---
ASSUMED PT CARE AT 1900. VSS. PT ALERT, FOLLOWS COMMANDS, RESTED WELL ALL NOC, NO COMPLAINTS, DRESSING CHANGE TO PRESSURE SORE THIS AM, NO OTHER ISSUES OVER NOC. GREAT U/O THIS SHIFT. WILL CONTINUE TO MONITOR.
[2020-07-20 06:04] LABS: HEMATOCRIT 25.6 % (37.0-47.0); HEMOGLOBIN 7.7 gm/dL (12.0-15.0); MCH 23.8 pg (26.0-34.0); MCHC 30.3 g/dL (28.0-37.0); MCV 78.7 fL (80.0-100.0); RBC 3.25 mil/uL (4.20-5.00); RDW 23.1 % (10.5-14.5); WBC 12.1 thou/uL (4.0-11.0)
[2020-07-20 06:08] LABS: ANION GAP < 0 mmol/L (7-16); BUN 50 mg/dL (7-18); CALCIUM 8.8 mg/dL (8.5-10.1); CHLORIDE 106 mmol/L (98-107); CO2 39 mmol/L (21-32); GLUCOSE 414 mg/dL (74-106); MAGNESIUM 1.9 mg/dL (1.8-2.4); POTASSIUM 3.8 mmol/L (3.5-5.1); SODIUM 141 mmol/L (136-145)
--- NOTE | 2020-07-20 09:33 | NUR ---
per hospitalist jorge is ready to dc back to [facility] today. cm notified [facility] and they are ready, " just need dc order 2 hrs prior to being able to set up transportation and need updates today"/liaison. cm faxed updates. will send dc orders when complete. cc completed just need to add dc orders to packet.
[2020-07-20] MEDS ORDERED: ZOSYN 3.373.375 GM/1 IV (10:46)
[2020-07-20] MEDS ORDERED: LEVAQUIN 7750 MG/152 IV (10:47)
[2020-07-20] MEDS ORDERED: OMEPRAZOLE 20 M20 M1 PER TUBE (10:48)
--- NOTE | 2020-07-20 15:01 | NUR ---
Report was called to RN at facility for transfer of patient. Copy of chart sent with patient. Patient transfered via [facility]. Wound care pictures obtained prior.
== END 2020-07-20 14:55 | DRG 870 ==
LOC: ER 18:02 → EROBS 19:32 → ICU 19:32
PROVIDERS: Emergency Medicine; Internal Medicine; Internal Medicine Pulmonary Disease; Nurse Practitioner Family; ADMIT Hospitalist; ATTEND Hospitalist
PROC: 5A1955Z Respiratory Ventilation, Greater than 96 Consecutive Hours (ICD-10-PCS; principal; 2020-07-13)
PROC: 30233N1 Transfusion of Nonautologous Red Blood Cells into Peripheral Vein, Percutaneous Approach (ICD-10-PCS; principal; 2020-07-13)
PROC: 02HV33Z Insertion of Infusion Device into Superior Vena Cava, Percutaneous Approach (ICD-10-PCS; principal; 2020-07-13)
DX: A41.9 Sepsis, unspecified organism (principal); L89.153 Pressure ulcer of sacral region, stage 3; I50.23 Acute on chronic systolic (congestive) heart failure; J96.21 Acute and chronic respiratory failure with hypoxia; J96.22 Acute and chronic respiratory failure with hypercapnia; J15.1 Pneumonia due to Pseudomonas; E43 Unspecified severe protein-calorie malnutrition; I46.9 Cardiac arrest, cause unspecified; D62 Acute posthemorrhagic anemia; I42.9 Cardiomyopathy, unspecified; E87.1 Hypo-osmolality and hyponatremia; K92.2 Gastrointestinal hemorrhage, unspecified; Z99.11 Dependence on respirator [ventilator] status; Z20.822 Contact with and (suspected) exposure to COVID-19; E11.9 Type 2 diabetes mellitus without complications; I48.91 Unspecified atrial fibrillation; F32.9 Major depressive disorder, single episode, unspecified; E65 Localized adiposity; R13.10 Dysphagia, unspecified; Z86.73 Personal history of transient ischemic attack (TIA), and cerebral infarction without residual deficits; Z88.8 Allergy status to other drugs, medicaments and biological substances; Z86.16 Personal history of COVID-19; Z68.27 Body mass index [BMI] 27.0-27.9, adult; Z79.899 Other long term (current) drug therapy
CPT/HCPCS: 10078; 10203; 27000; 85076